=== PATIENT | male | born 1965 | race Caucasian/White ===

== ENCOUNTER 2018-07-15 01:55 | Inpatient (IN) | payer SELFPAY ==
[~2018-07-15] VITALS: Ht 162.6 cm; Wt 94.8 kg
[2018-07-15 01:58] VITALS: Ht 162.6 cm; Wt 94.8 kg
[2018-07-15 02:59] LABS: BASOPHIL % 0.1 % (0-2); PLATELET COUNT 363 x10^3mcL (130-400)
[2018-07-15 03:04] LABS: CALCIUM 8.9 mg/dL (8.5-10.1); CARBON DIOXIDE 29.8 mmol/L (21-32); CREATININE SERUM 1.4 mg/dL (0.7-1.3); POTASSIUM SERUM 3.7 mmol/L (3.5-5.1)
[2018-07-15 03:05] LABS: RED CELL DISTRIBUTION WIDTH 14.6 % (11.5-14.5)
[2018-07-15 03:08] LABS: ALBUMIN 3.9 g/dL (3.4-5.0); BILIRUBIN TOTAL 0.3 mg/dL (0.20-1.00); TOTAL PROTEIN, SERUM 7.9 g/dL (6.4-8.2)
[2018-07-15] MEDS ORDERED: TESTOPEL75 MG (05:20)
[2018-07-15] MEDS ORDERED: HCG (05:21)
[2018-07-15 05:45] LABS: MAGNESIUM 2.3 mg/dL (1.8-2.4); PHOSPHOROUS 3.4 mg/dL (2.5-4.9)
[2018-07-15 05:49] LABS: CHOLESTEROL/HDL RATIO 6.6
[2018-07-15 06:05] VITALS: BP 166/106
[2018-07-15 09:02] VITALS: BP 166/95
[2018-07-15 10:10] VITALS: BP 160/105
[2018-07-15 13:44] LABS: UA SPECIFIC GRAVITY 1.025 (1.005-1.035); microscopic required? YES; urine erythrocyte 1+ (NEGATIVE)
[2018-07-15 16:47] VITALS: BP 125/72
[2018-07-15 18:05] VITALS: BP 181/75
[2018-07-15 20:48] VITALS: BP 122/67
[2018-07-16 06:03] LABS: BASOPHIL % 0.2 % (0-2); PLATELET COUNT 319 x10^3mcL (130-400)
[2018-07-16 06:05] VITALS: BP 144/76
[2018-07-16 06:07] LABS: CALCIUM 8.4 mg/dL (8.5-10.1); CARBON DIOXIDE 27.4 mmol/L (21-32); CHLORIDE SERUM 102 mmol/L (98-107); CREATININE SERUM 1.2 mg/dL (0.7-1.3); GFR1 > 60 mL/min; GLUCOSE SERUM 131 mg/dL (74-106); SODIUM SERUM 139 mmol/L (136-145)
[2018-07-16 09:20] LABS: RED CELL DISTRIBUTION WIDTH 15.1 % (11.5-14.5)
[2018-07-16 09:57] VITALS: BP 142/82
[2018-07-16] MEDS ORDERED: ZES10 PO (13:41)
[2018-07-16 14:52] VITALS: BP 142/82
== END 2018-07-16 15:35 | disposition home or self-care (01) | DRG 417 ==
LOC: ED 01:55 → MU 04:49
PROVIDERS: Emergency Medicine; General Practice; Surgery
PROC: 0FT44ZZ Resection of Gallbladder, Percutaneous Endoscopic Approach (ICD-10-PCS; principal; 2018-07-15 10:30)
DX: K80.00 Calculus of gallbladder with acute cholecystitis without obstruction (principal); N17.0 Acute kidney failure with tubular necrosis; I16.0 Hypertensive urgency; E78.5 Hyperlipidemia, unspecified; R73.03 Prediabetes; E66.9 Obesity, unspecified; Z68.35 Body mass index [BMI] 35.0-35.9, adult; I10 Essential (primary) hypertension; R16.0 Hepatomegaly, not elsewhere classified; F17.210 Nicotine dependence, cigarettes, uncomplicated
CPT/HCPCS: 83880; 90658; J0330; J1885; J2175; J2250; J2405; J2543; J2704; J3010; J3490; J7030; J7050; J7120; Q0092